=== PATIENT | female | born 1960 | race African-American/Black ===

== ENCOUNTER 2021-10-30 04:22 | Inpatient (IN) | payer BC ==
[~2021-10-30] VITALS: Ht 154.9 cm; Wt 38.1 kg
[2021-10-30] MEDS ORDERED: VANCOMYCIN 1 G PREMIX 200 ML IV ONE (04:30)
[2021-10-30] MEDS ORDERED: ETOMIDATE 2MG/ML 10ML VIAL IV ONE ×2 (04:30→10:00)
[2021-10-30] MEDS ORDERED: MIDAZOLAM HCL 50 MG in DEXTROSE 5% WATER 40 ML IV ONE (04:30)
[2021-10-30] MEDS ORDERED: VECURONIUM BROMIDE 10 MG/VIAL IV ONE ×2 (04:30→10:00)
[2021-10-30] MEDS ORDERED: SODIUM CHLORIDE 0.9% 1,000 ML IV ONE (04:30)
[2021-10-30] MEDS ORDERED: PIPERACILLIN/TAZ 3.375G PREMIX 50 ML IV ONE (04:30)
[2021-10-30] MEDS ORDERED: MIDAZOLAM 100MG/100ML PREMIX IV NR (05:00)
[2021-10-30 05:25] LABS: BG BASE EXCESS -20.8 mmol/L (-2.0-2.0); BG CARBOXYHEMOGLOBIN 0.3 % (0.5-1.5); BG DEOXYHEMOGLOBIN 1.3 % (0.0-5.0); BG FRACTION INSPIRED OXYGEN 50; BG HCO3 ACT 8.1 mmol/L (22.0-26.0); BG METHEMOGLOBIN 0.4 % (0.0-1.5); BG OXYGEN SATURATION 98.7 % (92.0-98.5); BG PCO2 30.7 mmHg (35.0-45.0); BG PH 7.039 (7.350-7.450); BG PO2 255.7 mmHg (75.0-100.0); BG SAMPLE SITE RIGHT RADIAL; BG VENT MODE VENT - AC
[2021-10-30] MEDS ORDERED: CALCIUM CHLORIDE 1GM/10ML SYR IV ONE ×3 (05:45→10:00)
[2021-10-30] MEDS ORDERED: SODIUM BICARBONATE 8.4% 1 MEQ/ML 50ML SYR IV ONE ×3 (05:45→10:00)
[2021-10-30 05:46] LABS: MEAN CORPUSCULAR HEMOGLOBIN 27.3 pg (28.0-32.0); MEAN CORPUSCULAR VOLUME 80.5 fL (81.0-99.0); MEAN PLATELET VOLUME 8.2 fl (7.4-10.4); PLATELET 389 x1000/uL (130-400); RED BLOOD CELL COUNT 2.48 mill/uL (4.2-5.4); RED CELL DISTRIBUTION WIDTH 18.7 % (11.6-14.6)
[2021-10-30 05:56] LABS: CHLORIDE 98 mEq/L (98-107); HEMOGLOBIN. 6.8 g/dL (12.0-16.0)
[2021-10-30 06:29] LABS: ETHANOL BLOOD < 10 mg/dL
[2021-10-30 07:12] LABS: PLATELET ESTIMATE NORMAL
[2021-10-30] MEDS ORDERED: INSULIN REGULAR (HUMULIN R) 300UNITS/3ML VIAL IV ONE (07:15)
[2021-10-30] MEDS ORDERED: DEXTROSE 50% WATER 50ML SYRINGE IV ONE (07:15)
[2021-10-30] MEDS ORDERED: ALBUTEROL (0.083%) 2.5MG/3ML NEB HHN ONE (07:15)
[2021-10-30] MEDS ORDERED: LACTATED RINGERS IV NR (07:30)
[2021-10-30] MEDS ORDERED: MANNITOL 12.5G (25%) VIAL 50ML IV NR ×2 (08:00→18:15)
[2021-10-30] MEDS ORDERED: LIDOCAINE HCL 1% 20ML VIAL (Pyxis) INJ ONE (08:51)
[2021-10-30] MEDS ORDERED: ADENOSINE 3 MG/ML 2ML VIAL IV ONE (10:00)
[2021-10-30] MEDS ORDERED: SODIUM CHLORIDE 0.9% 10ML VIAL ONE (10:00)
[2021-10-30 10:03] LABS: HEPATITIS B SURFACE ANTIGEN NEGATIVE
[2021-10-30 10:16] LABS: PHOSPHORUS 9.8 mg/dL (2.5-4.9)
[2021-10-30] MEDS ORDERED: SODIUM BICARBONATE 8.4% 1 MEQ/ML 50ML SYR IV NR (10:45)
[2021-10-30] MEDS ORDERED: INSULIN REGULAR (HUMULIN R) 300UNITS/3ML VIAL IV NR (10:45)
[2021-10-30] MEDS ORDERED: ACETAMINOPHEN 325MG TABLET PO PRN (13:15)
[2021-10-30] MEDS ORDERED: ONDANSETRON HCL 4MG/2ML INJ IV PRN (13:15)
[2021-10-30 14:47] LABS: HEMATOCRIT 26.3 % (36.0-48.0)
[2021-10-30 14:59] LABS: INR 1.4; PROTHROMBIN TIME 14.6 sec (9.6-11.0)
[2021-10-30 19:02] LABS: AMYLASE 385 IU/L (25-115)
[2021-10-30] MEDS ORDERED: PHENYLEPHRINE 100 MG in DEXT 5% WATER 240 ML IV PRN (19:45)
[2021-10-30] MEDS ORDERED: PIPERACILLIN/TAZ 3.375G PREMIX 50 ML IV SCH (21:00)
[2021-10-30 22:24] LABS: BG CARBOXYHEMOGLOBIN 0.2 % (0.5-1.5); BG DEOXYHEMOGLOBIN 3.6 % (0.0-5.0); BG FRACTION INSPIRED OXYGEN 40; BG HCO3 ACT 20.7 mmol/L (22.0-26.0); BG METHEMOGLOBIN 0.2 % (0.0-1.5); BG OXYGEN SATURATION 96.4 % (92.0-98.5); BG PCO2 31.8 mmHg (35.0-45.0); BG PH 7.431 (7.350-7.450); BG PO2 103.7 mmHg (75.0-100.0); BG SAMPLE SITE RIGHT BRACHIAL; BG TOTAL HEMOGLOBIN 9.8 g/dL (12.0-18.0); BG VENT MODE VENT - AC
[2021-10-30 23:35] LABS: CLARITY URINE TURBID (CLEAR); COLOR URINE RED (YELLOW); KETONES URINE NEGATIVE (NEGATIVE); LEUKOCYTE ESTERASE URINE 3+ (NEGATIVE); NITRITE URINE POSITIVE (NEGATIVE); OCCULT BLOOD URINE 2+ (NEGATIVE); PROTEIN URINE 3+ (NEGATIVE); SPECIFIC GRAVITY URINE 1.025 (1.005-1.030); UROBILINOGEN URINE 0.2 E.U./dL (0.2-1.0)
[2021-10-31] VITALS (64 sets, daily range): BP systolic 94–157; BP diastolic 46–149
[2021-10-31 01:04] LABS: *AMPHETAMINES SCREEN URINE NEGATIVE (NEGATIVE); *BARBITURATES SCREEN URINE NEGATIVE (NEGATIVE); *BENZODIAZEPINES SCREEN URINE NEGATIVE (NEGATIVE); *COCAINE SCREEN URINE NEGATIVE (NEGATIVE)
[2021-10-31 01:06] LABS: METHADONE URINE SCREEN NEGATIVE (NEGATIVE)
[2021-10-31 01:08] LABS: CANNABINOID URINE SCREEN NEGATIVE (NEGATIVE); OPIATES URINE SCREEN NEGATIVE (NEGATIVE); PHENCYCLIDINE URINE SCREEN NEGATIVE (NEGATIVE)
[2021-10-31] MEDS ORDERED: MIDAZOLAM 100MG/100ML PMX 100 ML IV STA (03:36)
[2021-10-31] MEDS ORDERED: MIDAZOLAM HCL 100 MG in SODIUM CHLORIDE 0.9% 100 ML IV PRN (04:00)
[2021-10-31 05:34] LABS: HEMOGLOBIN. 8.4 g/dL (12.0-16.0); MEAN CORPUSCULAR HEMOGLOBIN 27.3 pg (28.0-32.0); MEAN CORPUSCULAR VOLUME 81.1 fL (81.0-99.0); MEAN PLATELET VOLUME 8.4 fl (7.4-10.4); PLATELET 278 x1000/uL (130-400); RED BLOOD CELL COUNT 3.08 mill/uL (4.2-5.4); RED CELL DISTRIBUTION WIDTH 18.4 % (11.6-14.6)
[2021-10-31 08:40] LABS: BG BASE EXCESS -5.8 mmol/L (-2.0-2.0); BG CARBOXYHEMOGLOBIN 0.2 % (0.5-1.5); BG DEOXYHEMOGLOBIN 2.9 % (0.0-5.0); BG FRACTION INSPIRED OXYGEN 40; BG HCO3 ACT 18.6 mmol/L (22.0-26.0); BG METHEMOGLOBIN 0.4 % (0.0-1.5); BG OXYGEN SATURATION 97.1 % (92.0-98.5); BG OXYHEMOGLOBIN 96.5 % (94.0-97.0); BG PCO2 32.2 mmHg (35.0-45.0); BG PO2 116.4 mmHg (75.0-100.0); BG SAMPLE SITE LEFT RADIAL; BG TOTAL HEMOGLOBIN 8.8 g/dL (12.0-18.0); BG VENT MODE VENT - AC
[2021-10-31] MEDS: DEXT 5%/0.45% NACL 1000ML 1,000 ML IV SCH ×2 (09:11→18:49)
[2021-10-31] MEDS: PANTOPRAZOLE SODIUM 40 MG/VIAL IV SCH (09:11)
[2021-10-31 10:19] LABS: NUCLEATED RED BLOOD CELLS 1 /100 WBC; PLATELET ESTIMATE NORMAL
[2021-10-31] MEDS: PIPERACILLIN/TAZOBACTAM 3.375 G in DEXTROSE 5% WATER 50 ML IV SCH ×2 (10:52→20:40)
[2021-10-31] MEDS ORDERED: PROPOFOL 10MG/ML 100ML 100 ML IV PRN (15:45)
[2021-10-31] MEDS ORDERED: IPRATROPIUM/ALBUTEROL 0.5-3(2.5)MG/3ML NEB HHN PRN (16:00)
[2021-10-31] MEDS ORDERED: FENTANYL CITRATE/PF 2,500 MCG in SODIUM CHLORIDE 0.9% 200 ML IV PRN (16:30)
[2021-10-31] MEDS: IPRATROPIUM/ALBUTEROL 0.5-3(2.5)MG/3ML NEB HHN SCH (20:40)
[2021-11-01] VITALS (87 sets, daily range): BP systolic 95–138; BP diastolic 54–97
[2021-11-01] MEDS: IPRATROPIUM/ALBUTEROL 0.5-3(2.5)MG/3ML NEB HHN SCH ×4 (01:19→20:47)
[2021-11-01] MEDS: DEXT 5%/0.45% NACL 1000ML 1,000 ML IV SCH ×2 (05:01→15:32)
[2021-11-01 06:18] LABS: HEMATOCRIT. 25.6 % (36.0-48.0); HEMOGLOBIN. 8.7 g/dL (12.0-16.0); MEAN CORPUSCULAR HEMOGLOBIN 27.7 pg (28.0-32.0); MEAN CORPUSCULAR VOLUME 81.4 fL (81.0-99.0); MEAN PLATELET VOLUME 8.1 fl (7.4-10.4); PLATELET 225 x1000/uL (130-400); RED BLOOD CELL COUNT 3.15 mill/uL (4.2-5.4); RED CELL DISTRIBUTION WIDTH 18.2 % (11.6-14.6)
[2021-11-01 08:51] LABS: BG BASE EXCESS -5.8 mmol/L (-2.0-2.0); BG CARBOXYHEMOGLOBIN 0.3 % (0.5-1.5); BG FRACTION INSPIRED OXYGEN 40; BG HCO3 ACT 17.4 mmol/L (22.0-26.0); BG OXYHEMOGLOBIN 98.7 % (94.0-97.0); BG PCO2 26.2 mmHg (35.0-45.0); BG PEEP (cmH2O) 0 cmH2O; BG PO2 180.4 mmHg (75.0-100.0); BG SAMPLE SITE RIGHT RADIAL; BG TOTAL HEMOGLOBIN 8.4 g/dL (12.0-18.0); BG VENT MODE VENT - AC/VC
[2021-11-01 08:52] LABS: NUCLEATED RED BLOOD CELLS 2 /100 WBC; PLATELET ESTIMATE NORMAL
[2021-11-01] MEDS: PIPERACILLIN/TAZOBACTAM 3.375 G in DEXTROSE 5% WATER 50 ML IV SCH ×2 (08:54→20:53)
[2021-11-01] MEDS: PANTOPRAZOLE SODIUM 40 MG/VIAL IV SCH (08:54)
[2021-11-01] MEDS: MIDODRINE HCL 5MG TABLET PO SCH ×3 (12:48→21:33)
[2021-11-01] MEDS ORDERED: VANCOMYCIN 500 MG PREMIX 100 ML IV SCH (15:00)
[2021-11-02] VITALS (80 sets, daily range): BP systolic 100–172; BP diastolic 66–116
[2021-11-02] MEDS: IPRATROPIUM/ALBUTEROL 0.5-3(2.5)MG/3ML NEB HHN SCH ×4 (00:39→20:19)
[2021-11-02] MEDS: DEXT 5%/0.45% NACL 1000ML 1,000 ML IV SCH (02:16)
[2021-11-02] MEDS ORDERED: KETOROLAC 30MG/ML VIAL IV SCH (02:30)
[2021-11-02] MEDS: MIDODRINE HCL 5MG TABLET PO SCH ×4 (05:14→21:15)
[2021-11-02] MEDS: PANTOPRAZOLE SODIUM 40 MG/VIAL IV SCH (08:16)
[2021-11-02] MEDS: PIPERACILLIN/TAZOBACTAM 3.375 G in DEXTROSE 5% WATER 50 ML IV SCH ×2 (08:16→20:58)
[2021-11-02 08:46] LABS: MEAN CORPUSCULAR HEMOGLOBIN 28.8 pg (28.0-32.0); MEAN CORPUSCULAR VOLUME 81.1 fL (81.0-99.0); MEAN PLATELET VOLUME 8.4 fl (7.4-10.4); PLATELET 124 x1000/uL (130-400); RED BLOOD CELL COUNT 2.57 mill/uL (4.2-5.4); RED CELL DISTRIBUTION WIDTH 17.7 % (11.6-14.6)
[2021-11-02 08:52] LABS: HEMATOCRIT. 20.8 % (36.0-48.0); HEMOGLOBIN. 7.4 g/dL (12.0-16.0)
[2021-11-02 08:53] LABS: BG BASE EXCESS -2.2 mmol/L (-2.0-2.0); BG CARBOXYHEMOGLOBIN 0.2 % (0.5-1.5); BG DEOXYHEMOGLOBIN 2.9 % (0.0-5.0); BG FRACTION INSPIRED OXYGEN 30; BG HCO3 ACT 21.3 mmol/L (22.0-26.0); BG METHEMOGLOBIN 0.5 % (0.0-1.5); BG OXYGEN SATURATION 97.1 % (92.0-98.5); BG OXYHEMOGLOBIN 96.4 % (94.0-97.0); BG PH 7.454 (7.350-7.450); BG PO2 98.6 mmHg (75.0-100.0); BG SAMPLE SITE RIGHT RADIAL; BG TOTAL HEMOGLOBIN 8.2 g/dL (12.0-18.0); BG TOTAL RESPIRATORY RATE 19 b/min; BG VENT MODE VENT - AC
[2021-11-02 09:05] LABS: PHOSPHORUS 4.1 mg/dL (2.5-4.9)
[2021-11-02 14:31] LABS: PLATELET ESTIMATE SLIGHTLY DECREASED
[2021-11-02 15:11] LABS: HEMATOCRIT 28.3 % (36.0-48.0); HEMOGLOBIN 9.3 g/dL (12.0-16.0)
[2021-11-02 15:28] LABS: INR 1.2; PROTHROMBIN TIME 13.1 sec (9.6-11.0)
[2021-11-03] VITALS (76 sets, daily range): BP systolic 97–185; BP diastolic 61–126
[2021-11-03] MEDS: IPRATROPIUM/ALBUTEROL 0.5-3(2.5)MG/3ML NEB HHN SCH ×4 (02:12→20:33)
[2021-11-03] MEDS ORDERED: LORAZEPAM 2MG/ML CPJ IM PRN (03:00)
[2021-11-03] MEDS: LORAZEPAM 2MG/ML CPJ IV PRN ×2 (03:15→12:54)
[2021-11-03] MEDS: HYDRALAZINE HCL 10MG TABLET PO PRN (05:44)
[2021-11-03] MEDS: MIDODRINE HCL 5MG TABLET PO SCH ×3 (05:44→22:00)
[2021-11-03 06:18] LABS: HEMATOCRIT. 27.6 % (36.0-48.0); HEMOGLOBIN. 9.4 g/dL (12.0-16.0); MEAN CORPUSCULAR HEMOGLOBIN 27.4 pg (28.0-32.0); MEAN CORPUSCULAR VOLUME 80.6 fL (81.0-99.0); MEAN PLATELET VOLUME 8.6 fl (7.4-10.4); PLATELET 93 x1000/uL (130-400); RED BLOOD CELL COUNT 3.42 mill/uL (4.2-5.4); RED CELL DISTRIBUTION WIDTH 16.5 % (11.6-14.6)
[2021-11-03 08:51] LABS: BG BASE EXCESS -2.2 mmol/L (-2.0-2.0); BG CARBOXYHEMOGLOBIN 0.2 % (0.5-1.5); BG DEOXYHEMOGLOBIN 3.2 % (0.0-5.0); BG FRACTION INSPIRED OXYGEN 30; BG HCO3 ACT 19.4 mmol/L (22.0-26.0); BG METHEMOGLOBIN 0.3 % (0.0-1.5); BG OXYGEN SATURATION 96.8 % (92.0-98.5); BG OXYHEMOGLOBIN 96.3 % (94.0-97.0); BG PCO2 23.6 mmHg (35.0-45.0); BG PH 7.532 (7.350-7.450); BG PO2 90.4 mmHg (75.0-100.0); BG SAMPLE SITE RIGHT RADIAL; BG TOTAL HEMOGLOBIN 10.1 g/dL (12.0-18.0); BG VENT MODE VENT - SIMV
[2021-11-03] MEDS: PANTOPRAZOLE SODIUM 40 MG/VIAL IV SCH (09:28)
[2021-11-03] MEDS: PIPERACILLIN/TAZOBACTAM 3.375 G in DEXTROSE 5% WATER 50 ML IV SCH ×2 (09:29→21:38)
[2021-11-03 10:05] LABS: NUCLEATED RED BLOOD CELLS 1 /100 WBC; PLATELET ESTIMATE SLIGHTLY DECREASED
[2021-11-03] MEDS: MORPHINE SULFATE 2 MG/ML CPJ (NOT FOR IM USE) IV PRN (16:39)
[2021-11-03] MEDS: GUAIFENESIN 200MG/10ML SUGAR FREE UDC PO SCH (18:54)
[2021-11-04] VITALS (93 sets, daily range): BP systolic 104–182; BP diastolic 33–122
[2021-11-04] MEDS: IPRATROPIUM/ALBUTEROL 0.5-3(2.5)MG/3ML NEB HHN SCH ×4 (00:33→20:20)
[2021-11-04] MEDS: ACETYLCYSTEINE 100MG/ML 10% VIAL 4ML INH SCH ×3 (00:34→14:40)
[2021-11-04] MEDS: GUAIFENESIN 200MG/10ML SUGAR FREE UDC PO SCH ×5 (01:20→22:49)
[2021-11-04] MEDS: LORAZEPAM 2MG/ML CPJ IV PRN ×3 (01:20→18:28)
[2021-11-04] MEDS: MORPHINE SULFATE 2 MG/ML CPJ (NOT FOR IM USE) IV PRN (03:20)
[2021-11-04] MEDS: HYDRALAZINE HCL 10MG TABLET PO PRN (04:18)
[2021-11-04] MEDS: MIDODRINE HCL 5MG TABLET PO SCH (06:00)
[2021-11-04 06:42] LABS: HEMATOCRIT. 28.1 % (36.0-48.0); HEMOGLOBIN. 9.5 g/dL (12.0-16.0); MEAN CORPUSCULAR HEMOGLOBIN 27.5 pg (28.0-32.0); MEAN CORPUSCULAR VOLUME 81.6 fL (81.0-99.0); MEAN PLATELET VOLUME 8.8 fl (7.4-10.4); PLATELET 69 x1000/uL (130-400); RED BLOOD CELL COUNT 3.44 mill/uL (4.2-5.4); RED CELL DISTRIBUTION WIDTH 16.7 % (11.6-14.6)
[2021-11-04] MEDS: PIPERACILLIN/TAZOBACTAM 3.375 G in DEXTROSE 5% WATER 50 ML IV SCH ×2 (08:11→21:29)
[2021-11-04] MEDS: PANTOPRAZOLE SODIUM 40 MG/VIAL IV SCH (08:11)
[2021-11-04] MEDS ORDERED: POTASSIUM CHLORIDE 20MEQ TABLET SR PO SCH (08:45)
[2021-11-04] MEDS: AMLODIPINE 10MG TABLET PO SCH (09:35)
[2021-11-04] MEDS ORDERED: NALOXONE HCL 0.4MG/ML VIAL IV PRN (15:30)
[2021-11-04] MEDS: POLYVINYL ALCOHOL OPHTH DROPS 15ML BOTHEYE SCH (17:06)
[2021-11-04 18:54] LABS: CREATININE URINE RANDOM < 10.0 mg/dL
[2021-11-05] VITALS (91 sets, daily range): BP systolic 122–174; BP diastolic 74–108
[2021-11-05 01:08] LABS: PLATELET ESTIMATE DECREASED
[2021-11-05] MEDS: ACETYLCYSTEINE 100MG/ML 10% VIAL 4ML INH SCH ×3 (02:30→14:57)
[2021-11-05] MEDS: IPRATROPIUM/ALBUTEROL 0.5-3(2.5)MG/3ML NEB HHN SCH ×4 (02:30→21:12)
[2021-11-05] MEDS: GUAIFENESIN 200MG/10ML SUGAR FREE UDC PO SCH ×4 (04:15→23:29)
[2021-11-05] MEDS: POLYVINYL ALCOHOL OPHTH DROPS 15ML BOTHEYE SCH ×5 (05:56→21:16)
[2021-11-05 06:30] LABS: PHOSPHORUS 3.1 mg/dL (2.5-4.9)
[2021-11-05 07:31] LABS: BG BASE EXCESS 0.5 mmol/L (-2.0-2.0); BG CARBOXYHEMOGLOBIN 0.3 % (0.5-1.5); BG DEOXYHEMOGLOBIN 4.4 % (0.0-5.0); BG HCO3 ACT 23.5 mmol/L (22.0-26.0); BG METHEMOGLOBIN 0.3 % (0.0-1.5); BG OXYGEN SATURATION 95.6 % (92.0-98.5); BG PCO2 31.3 mmHg (35.0-45.0); BG PH 7.493 (7.350-7.450); BG PO2 80.3 mmHg (75.0-100.0); BG SAMPLE SITE RIGHT RADIAL; BG TOTAL HEMOGLOBIN 9.2 g/dL (12.0-18.0); BG VENT MODE VENT - AC
[2021-11-05] MEDS: PANTOPRAZOLE SODIUM 40 MG/VIAL IV SCH (09:35)
[2021-11-05] MEDS: AMLODIPINE 10MG TABLET PO SCH (09:36)
[2021-11-05] MEDS: HYDRALAZINE HCL 10MG TABLET PO PRN (12:26)
[2021-11-05] MEDS: LORAZEPAM 2MG/ML CPJ IV PRN ×2 (12:52→18:14)
[2021-11-05] MEDS ORDERED: METOPROLOL TARTRATE 50MG TABLET PO NR (13:30)
[2021-11-05] MEDS: MORPHINE SULFATE 2 MG/ML CPJ (NOT FOR IM USE) IV PRN (15:41)
[2021-11-05] MEDS: METOPROLOL TARTRATE 50MG TABLET PO SCH (21:17)
[2021-11-06] VITALS (87 sets, daily range): BP systolic 89–179; BP diastolic 64–103
[2021-11-06] MEDS: IPRATROPIUM/ALBUTEROL 0.5-3(2.5)MG/3ML NEB HHN SCH ×4 (01:32→21:17)
[2021-11-06] MEDS: ACETYLCYSTEINE 100MG/ML 10% VIAL 4ML INH SCH ×3 (01:32→13:09)
[2021-11-06] MEDS: LORAZEPAM 2MG/ML CPJ IV PRN (02:24)
[2021-11-06] MEDS: GUAIFENESIN 200MG/10ML SUGAR FREE UDC PO SCH ×3 (04:20→23:35)
[2021-11-06] MEDS: POLYVINYL ALCOHOL OPHTH DROPS 15ML BOTHEYE SCH ×4 (06:40→23:35)
[2021-11-06 06:42] LABS: HEMATOCRIT. 25.9 % (36.0-48.0); HEMOGLOBIN. 8.6 g/dL (12.0-16.0); MEAN CORPUSCULAR HEMOGLOBIN 27.3 pg (28.0-32.0); MEAN CORPUSCULAR VOLUME 82.6 fL (81.0-99.0); PLATELET 87 x1000/uL (130-400); RED BLOOD CELL COUNT 3.14 mill/uL (4.2-5.4); RED CELL DISTRIBUTION WIDTH 16.6 % (11.6-14.6)
[2021-11-06 06:57] LABS: PHOSPHORUS 3.3 mg/dL (2.5-4.9)
[2021-11-06] MEDS: MORPHINE SULFATE 2 MG/ML CPJ (NOT FOR IM USE) IV PRN (07:40)
[2021-11-06] MEDS: PANTOPRAZOLE SODIUM 40 MG/VIAL IV SCH (08:26)
[2021-11-06] MEDS: METOPROLOL TARTRATE 50MG TABLET PO SCH ×2 (08:29→20:44)
[2021-11-06] MEDS: AMLODIPINE 10MG TABLET PO SCH (08:30)
[2021-11-06 09:35] LABS: BG BASE EXCESS -1.5 mmol/L (-2.0-2.0); BG CARBOXYHEMOGLOBIN 0.3 % (0.5-1.5); BG DEOXYHEMOGLOBIN 3.8 % (0.0-5.0); BG FRACTION INSPIRED OXYGEN 40; BG HCO3 ACT 21.7 mmol/L (22.0-26.0); BG METHEMOGLOBIN 0.2 % (0.0-1.5); BG OXYGEN SATURATION 96.2 % (92.0-98.5); BG OXYHEMOGLOBIN 95.7 % (94.0-97.0); BG PCO2 31.1 mmHg (35.0-45.0); BG PH 7.462 (7.350-7.450); BG PO2 80.8 mmHg (75.0-100.0); BG SAMPLE SITE RIGHT RADIAL; BG TOTAL HEMOGLOBIN 9.9 g/dL (12.0-18.0); BG TOTAL RESPIRATORY RATE 28 b/min; BG VENT MODE VENT - AC
[2021-11-06 11:43] LABS: PLATELET ESTIMATE DECREASED
[2021-11-06 13:33] LABS: BG BASE EXCESS -1.3 mmol/L (-2.0-2.0); BG CARBOXYHEMOGLOBIN 0.3 % (0.5-1.5); BG DEOXYHEMOGLOBIN 3.9 % (0.0-5.0); BG METHEMOGLOBIN 0.3 % (0.0-1.5); BG OXYGEN SATURATION 96.1 % (92.0-98.5); BG OXYHEMOGLOBIN 95.5 % (94.0-97.0); BG PCO2 31.7 mmHg (35.0-45.0); BG PO2 82.3 mmHg (75.0-100.0); BG SAMPLE SITE RIGHT RADIAL; BG TOTAL HEMOGLOBIN 9.3 g/dL (12.0-18.0); BG VENT MODE VENT - CPAP
[2021-11-06] MEDS ORDERED: HEPARIN SODIUM 1,000 UNIT/1ML VIAL IV NR (14:15)
[2021-11-06 17:16] LABS: BG BASE EXCESS 1.1 mmol/L (-2.0-2.0); BG CARBOXYHEMOGLOBIN 0.3 % (0.5-1.5); BG DEOXYHEMOGLOBIN 4.5 % (0.0-5.0); BG HCO3 ACT 23.5 mmol/L (22.0-26.0); BG METHEMOGLOBIN 0.1 % (0.0-1.5); BG OXYGEN SATURATION 95.5 % (92.0-98.5); BG OXYHEMOGLOBIN 95.1 % (94.0-97.0); BG PCO2 30.5 mmHg (35.0-45.0); BG PH 7.505 (7.350-7.450); BG PO2 77.1 mmHg (75.0-100.0); BG SAMPLE SITE RIGHT RADIAL; BG TOTAL HEMOGLOBIN 11.7 g/dL (12.0-18.0); BG VENT MODE VENT - CPAP
[2021-11-07] VITALS (73 sets, daily range): BP systolic 106–169; BP diastolic 61–118
[2021-11-07] MEDS: ACETYLCYSTEINE 100MG/ML 10% VIAL 4ML INH SCH ×3 (00:45→16:44)
[2021-11-07] MEDS: IPRATROPIUM/ALBUTEROL 0.5-3(2.5)MG/3ML NEB HHN SCH ×4 (00:46→21:43)
[2021-11-07 06:39] LABS: HEMOGLOBIN. 8.7 g/dL (12.0-16.0); MEAN CORPUSCULAR HEMOGLOBIN 27.4 pg (28.0-32.0); MEAN CORPUSCULAR VOLUME 82.3 fL (81.0-99.0); MEAN PLATELET VOLUME 9.9 fl (7.4-10.4); PLATELET 154 x1000/uL (130-400); RED BLOOD CELL COUNT 3.16 mill/uL (4.2-5.4); RED CELL DISTRIBUTION WIDTH 16.9 % (11.6-14.6)
[2021-11-07] MEDS: POLYVINYL ALCOHOL OPHTH DROPS 15ML BOTHEYE SCH ×3 (07:00→18:23)
[2021-11-07] MEDS: GUAIFENESIN 200MG/10ML SUGAR FREE UDC PO SCH ×3 (07:01→22:26)
[2021-11-07] MEDS: METOPROLOL TARTRATE 50MG TABLET PO SCH ×2 (08:19→20:32)
[2021-11-07] MEDS: PANTOPRAZOLE SODIUM 40 MG/VIAL IV SCH (08:19)
[2021-11-07] MEDS: HYDRALAZINE HCL 10MG TABLET PO PRN (08:19)
[2021-11-07] MEDS: AMLODIPINE 10MG TABLET PO SCH (08:22)
[2021-11-07 09:33] LABS: BG BASE EXCESS 0.2 mmol/L (-2.0-2.0); BG CARBOXYHEMOGLOBIN 0.3 % (0.5-1.5); BG FRACTION INSPIRED OXYGEN 40; BG HCO3 ACT 23.5 mmol/L (22.0-26.0); BG METHEMOGLOBIN 0.3 % (0.0-1.5); BG OXYHEMOGLOBIN 96.4 % (94.0-97.0); BG PCO2 32.6 mmHg (35.0-45.0); BG PH 7.476 (7.350-7.450); BG PO2 86.4 mmHg (75.0-100.0); BG SAMPLE SITE RIGHT RADIAL; BG TOTAL HEMOGLOBIN 8.3 g/dL (12.0-18.0); BG VENT MODE VENT - AC
[2021-11-07 12:05] LABS: BG BASE EXCESS -0.8 mmol/L (-2.0-2.0); BG CARBOXYHEMOGLOBIN 0.3 % (0.5-1.5); BG DEOXYHEMOGLOBIN 8.6 % (0.0-5.0); BG FRACTION INSPIRED OXYGEN 40; BG HCO3 ACT 22.1 mmol/L (22.0-26.0); BG METHEMOGLOBIN 0.2 % (0.0-1.5); BG OXYGEN SATURATION 91.4 % (92.0-98.5); BG OXYHEMOGLOBIN 90.9 % (94.0-97.0); BG PCO2 29.7 mmHg (35.0-45.0); BG PH 7.489 (7.350-7.450); BG PO2 57.8 mmHg (75.0-100.0); BG SAMPLE SITE RIGHT RADIAL; BG TOTAL HEMOGLOBIN 8.7 g/dL (12.0-18.0); BG VENT MODE VENT - CPAP
[2021-11-07 13:36] LABS: PLATELET ESTIMATE NORMAL
[2021-11-08] VITALS (55 sets, daily range): BP systolic 108–166; BP diastolic 65–101
[2021-11-08] MEDS: POLYVINYL ALCOHOL OPHTH DROPS 15ML BOTHEYE SCH ×4 (00:05→17:01)
[2021-11-08] MEDS: IPRATROPIUM/ALBUTEROL 0.5-3(2.5)MG/3ML NEB HHN SCH ×4 (02:01→20:30)
[2021-11-08] MEDS: ACETYLCYSTEINE 100MG/ML 10% VIAL 4ML INH SCH ×3 (02:01→14:09)
[2021-11-08] MEDS: GUAIFENESIN 200MG/10ML SUGAR FREE UDC PO SCH ×4 (04:25→21:21)
[2021-11-08 05:58] LABS: HEMATOCRIT. 22.6 % (36.0-48.0); HEMOGLOBIN. 7.6 g/dL (12.0-16.0); MEAN CORPUSCULAR HEMOGLOBIN 27.4 pg (28.0-32.0); MEAN CORPUSCULAR VOLUME 81.5 fL (81.0-99.0); MEAN PLATELET VOLUME 9.6 fl (7.4-10.4); PLATELET 253 x1000/uL (130-400); RED BLOOD CELL COUNT 2.77 mill/uL (4.2-5.4); RED CELL DISTRIBUTION WIDTH 16.3 % (11.6-14.6)
[2021-11-08] MEDS: PANTOPRAZOLE SODIUM 40 MG/VIAL IV SCH (09:09)
[2021-11-08] MEDS: METOPROLOL TARTRATE 50MG TABLET PO SCH ×2 (09:10→21:22)
[2021-11-08] MEDS: HYDRALAZINE HCL 10MG TABLET PO PRN (09:10)
[2021-11-08] MEDS: AMLODIPINE 10MG TABLET PO SCH (09:10)
[2021-11-08] MEDS ORDERED: ENOXAPARIN 30MG/0.3ML SYR SUBCUT SCH (13:00)
[2021-11-08 13:07] LABS: ANTI-NUCLEAR ANTIBODIES DIRECT Positive (Negative)
[2021-11-08 14:09] LABS: A/G RATIO 0.6 (0.7-1.7); ALBUMIN 2.2 g/dL (2.9-4.4); ALPHA-1-GLOBULIN 0.6 g/dL (0.0-0.4); ALPHA-2-GLOBULIN 1.2 g/dL (0.4-1.0); BETA GLOBULIN 0.8 g/dL (0.7-1.3); GAMMA GLOBULINS 1.2 g/dL (0.4-1.8); GLOBULIN TOTAL 3.7 g/dL (2.2-3.9); M-SPIKE 0.8 g/dL (Not Observed); TOTAL PROTEIN SERUM 5.9 g/dL (6.0-8.5)
[2021-11-09] VITALS (12 sets, daily range): BP systolic 107–132; BP diastolic 66–84
[2021-11-09] MEDS: POLYVINYL ALCOHOL OPHTH DROPS 15ML BOTHEYE SCH ×4 (00:06→17:43)
[2021-11-09] MEDS: IPRATROPIUM/ALBUTEROL 0.5-3(2.5)MG/3ML NEB HHN SCH ×4 (01:07→18:00)
[2021-11-09] MEDS: ACETYLCYSTEINE 100MG/ML 10% VIAL 4ML INH SCH ×2 (01:30→08:06)
[2021-11-09] MEDS: GUAIFENESIN 200MG/10ML SUGAR FREE UDC PO SCH ×4 (05:04→22:13)
[2021-11-09 06:20] LABS: PLATELET ESTIMATE NORMAL
[2021-11-09 08:01] LABS: HEMATOCRIT. 21.5 % (36.0-48.0); HEMOGLOBIN. 7.2 g/dL (12.0-16.0); MEAN CORPUSCULAR HEMOGLOBIN 27.5 pg (28.0-32.0); MEAN CORPUSCULAR VOLUME 82.3 fL (81.0-99.0); MEAN PLATELET VOLUME 9.1 fl (7.4-10.4); PLATELET 368 x1000/uL (130-400); RED BLOOD CELL COUNT 2.61 mill/uL (4.2-5.4); RED CELL DISTRIBUTION WIDTH 16.5 % (11.6-14.6)
[2021-11-09] MEDS ORDERED: ASPIRIN 81MG TABLET PO SCH (09:00)
[2021-11-09] MEDS: PANTOPRAZOLE SODIUM 40 MG/VIAL IV SCH (09:22)
[2021-11-09] MEDS: AMLODIPINE 10MG TABLET PO SCH (09:22)
[2021-11-09] MEDS: METOPROLOL TARTRATE 50MG TABLET PO SCH ×2 (09:23→22:14)
[2021-11-09 13:49] LABS: HEPATITIS B SURFACE ANTIGEN NEGATIVE
[2021-11-09 16:44] LABS: PLATELET ESTIMATE NORMAL
[2021-11-09] MEDS ORDERED: NALOXONE HCL 0.4 MG/ML 1ML VIAL IV PRN (18:45)
[2021-11-09] MEDS: ATORVASTATIN CALCIUM 40MG TABLET PO SCH (22:13)
[2021-11-10] VITALS (12 sets, daily range): BP systolic 106–138; BP diastolic 41–81
[2021-11-10] MEDS: IPRATROPIUM/ALBUTEROL 0.5-3(2.5)MG/3ML NEB HHN SCH ×4 (01:30→21:22)
[2021-11-10] MEDS: POLYVINYL ALCOHOL OPHTH DROPS 15ML BOTHEYE SCH ×3 (04:58→18:03)
[2021-11-10] MEDS: GUAIFENESIN 200MG/10ML SUGAR FREE UDC PO SCH ×4 (04:58→22:15)
[2021-11-10 07:28] LABS: HEMATOCRIT. 21.7 % (36.0-48.0); HEMOGLOBIN. 7.4 g/dL (12.0-16.0); MEAN CORPUSCULAR HEMOGLOBIN 28.2 pg (28.0-32.0); MEAN CORPUSCULAR VOLUME 82.7 fL (81.0-99.0); MEAN PLATELET VOLUME 8.5 fl (7.4-10.4); PLATELET 489 x1000/uL (130-400); RED BLOOD CELL COUNT 2.62 mill/uL (4.2-5.4); RED CELL DISTRIBUTION WIDTH 16.6 % (11.6-14.6)
[2021-11-10] MEDS: PANTOPRAZOLE SODIUM 40 MG/VIAL IV SCH (08:48)
[2021-11-10] MEDS: AMLODIPINE 10MG TABLET PO SCH (08:49)
[2021-11-10] MEDS: METOPROLOL TARTRATE 50MG TABLET PO SCH ×2 (08:49→20:44)
[2021-11-10] MEDS: ACETYLCYSTEINE 100MG/ML 10% VIAL 4ML INH SCH ×2 (09:28→14:39)
[2021-11-10 12:36] LABS: INR 1.1; PROTHROMBIN TIME 11.8 sec (9.6-11.0)
[2021-11-10] MEDS: ATORVASTATIN CALCIUM 40MG TABLET PO SCH (20:44)
[2021-11-11] VITALS (24 sets, daily range): BP systolic 97–148; BP diastolic 38–87
[2021-11-11] MEDS: POLYVINYL ALCOHOL OPHTH DROPS 15ML BOTHEYE SCH ×4 (00:43→17:04)
[2021-11-11] MEDS: IPRATROPIUM/ALBUTEROL 0.5-3(2.5)MG/3ML NEB HHN SCH ×3 (01:21→11:53)
[2021-11-11] MEDS: ACETYLCYSTEINE 100MG/ML 10% VIAL 4ML INH SCH ×3 (01:21→11:54)
[2021-11-11] MEDS: GUAIFENESIN 200MG/10ML SUGAR FREE UDC PO SCH ×4 (04:10→22:15)
[2021-11-11 06:54] LABS: HEMATOCRIT. 21.4 % (36.0-48.0); HEMOGLOBIN. 7.3 g/dL (12.0-16.0); MEAN CORPUSCULAR HEMOGLOBIN 28.3 pg (28.0-32.0); MEAN CORPUSCULAR VOLUME 82.6 fL (81.0-99.0); MEAN PLATELET VOLUME 8.3 fl (7.4-10.4); PLATELET 445 x1000/uL (130-400); RED CELL DISTRIBUTION WIDTH 16.1 % (11.6-14.6)
[2021-11-11] MEDS: AMLODIPINE 10MG TABLET PO SCH (08:26)
[2021-11-11] MEDS: METOPROLOL TARTRATE 50MG TABLET PO SCH ×2 (08:27→21:12)
[2021-11-11] MEDS: PANTOPRAZOLE SODIUM 40 MG/VIAL IV SCH (08:27)
[2021-11-11 09:09] LABS: PLATELET ESTIMATE INCREASED
[2021-11-11 11:28] LABS: PLATELET ESTIMATE INCREASED
[2021-11-11] MEDS ORDERED: HEPARIN 1000 UNITS/ML 10ML ONE (12:27)
[2021-11-11] MEDS ORDERED: LIDOCAINE HCL 1% 20ML VIAL (Pyxis) INJ ONE (12:27)
[2021-11-11] MEDS ORDERED: CEFAZOLIN 1000MG PREMIX 50 ML IV ONE (12:32)
[2021-11-11] MEDS ORDERED: FENTANYL CITRATE/PF 50MCG/ML 2ML VIAL ONE (12:35)
[2021-11-11] MEDS ORDERED: CEFAZOLIN 1000MG PREMIX 50 ML IV SCH (13:00)
[2021-11-11] MEDS ORDERED: FENTANYL CITRATE/PF 50MCG/ML 2ML VIAL IV ONE (13:45)
[2021-11-11] MEDS: ATORVASTATIN CALCIUM 40MG TABLET PO SCH (21:11)
[2021-11-11] MEDS: EPOETIN ALFA-EPBX 10,000 UNIT/ML VIAL SUBCUT SCH (21:12)
[2021-11-12] VITALS (13 sets, daily range): BP systolic 104–149; BP diastolic 65–86
[2021-11-12] MEDS: POLYVINYL ALCOHOL OPHTH DROPS 15ML BOTHEYE SCH ×5 (01:21→23:48)
[2021-11-12] MEDS: GUAIFENESIN 200MG/10ML SUGAR FREE UDC PO SCH ×4 (04:25→21:51)
[2021-11-12 06:54] LABS: HEMATOCRIT. 23.9 % (36.0-48.0); HEMOGLOBIN. 8.1 g/dL (12.0-16.0); MEAN CORPUSCULAR HEMOGLOBIN 27.9 pg (28.0-32.0); MEAN CORPUSCULAR VOLUME 82.6 fL (81.0-99.0); MEAN PLATELET VOLUME 8.1 fl (7.4-10.4); PLATELET 507 x1000/uL (130-400); RED CELL DISTRIBUTION WIDTH 16.9 % (11.6-14.6)
[2021-11-12] MEDS: AMLODIPINE 10MG TABLET PO SCH (08:54)
[2021-11-12] MEDS: METOPROLOL TARTRATE 50MG TABLET PO SCH ×2 (08:54→21:37)
[2021-11-12] MEDS: PANTOPRAZOLE SODIUM 40 MG/VIAL IV SCH (08:54)
[2021-11-12] MEDS: IPRATROPIUM/ALBUTEROL 0.5-3(2.5)MG/3ML NEB HHN SCH ×4 (09:15→21:40)
[2021-11-12] MEDS: ACETYLCYSTEINE 100MG/ML 10% VIAL 4ML INH SCH ×2 (09:15→16:28)
[2021-11-12 14:25] LABS: BG BASE EXCESS -4.2 mmol/L (-2.0-2.0); BG CARBOXYHEMOGLOBIN 0.2 % (0.5-1.5); BG DEOXYHEMOGLOBIN 23.4 % (0.0-5.0); BG FRACTION INSPIRED OXYGEN 21; BG HCO3 ACT 17.7 mmol/L (22.0-26.0); BG METHEMOGLOBIN 0.2 % (0.0-1.5); BG OXYGEN SATURATION 76.5 % (92.0-98.5); BG OXYHEMOGLOBIN 76.2 % (94.0-97.0); BG PCO2 22.9 mmHg (35.0-45.0); BG PH 7.505 (7.350-7.450); BG PO2 41.1 mmHg (75.0-100.0); BG SAMPLE SITE LEFT BRACHIAL; BG TOTAL HEMOGLOBIN 9.7 g/dL (12.0-18.0); BG VENT MODE ROOM AIR
[2021-11-12 17:44] LABS: PLATELET ESTIMATE INCREASED
[2021-11-12] MEDS: ATORVASTATIN CALCIUM 40MG TABLET PO SCH (21:37)
[2021-11-13] VITALS (12 sets, daily range): BP systolic 100–124; BP diastolic 69–98
[2021-11-13] MEDS: GUAIFENESIN 200MG/10ML SUGAR FREE UDC PO SCH ×4 (04:15→22:15)
[2021-11-13] MEDS: POLYVINYL ALCOHOL OPHTH DROPS 15ML BOTHEYE SCH ×3 (05:35→17:49)
[2021-11-13] MEDS: PANTOPRAZOLE SODIUM 40 MG/VIAL IV SCH (08:01)
[2021-11-13] MEDS: METOPROLOL TARTRATE 50MG TABLET PO SCH ×2 (08:02→21:05)
[2021-11-13] MEDS: AMLODIPINE 10MG TABLET PO SCH (08:02)
[2021-11-13] MEDS: IPRATROPIUM/ALBUTEROL 0.5-3(2.5)MG/3ML NEB HHN SCH ×4 (09:18→20:21)
[2021-11-13] MEDS: ACETYLCYSTEINE 100MG/ML 10% VIAL 4ML INH SCH ×2 (09:18→17:11)
[2021-11-13 18:41] LABS: BG BASE EXCESS 1.2 mmol/L (-2.0-2.0); BG CARBOXYHEMOGLOBIN 0.3 % (0.5-1.5); BG DEOXYHEMOGLOBIN 15.2 % (0.0-5.0); BG FRACTION INSPIRED OXYGEN 21; BG HCO3 ACT 23.9 mmol/L (22.0-26.0); BG METHEMOGLOBIN 0.3 % (0.0-1.5); BG OXYGEN SATURATION 84.7 % (92.0-98.5); BG OXYHEMOGLOBIN 84.2 % (94.0-97.0); BG PCO2 30.3 mmHg (35.0-45.0); BG PH 7.514 (7.350-7.450); BG PO2 49.4 mmHg (75.0-100.0); BG SAMPLE SITE RIGHT RADIAL; BG TOTAL HEMOGLOBIN 8.5 g/dL (12.0-18.0); BG VENT MODE ROOM AIR
[2021-11-13] MEDS: ATORVASTATIN CALCIUM 40MG TABLET PO SCH (21:05)
[2021-11-14] VITALS (12 sets, daily range): BP systolic 120–140; BP diastolic 77–89
[2021-11-14] MEDS: POLYVINYL ALCOHOL OPHTH DROPS 15ML BOTHEYE SCH ×4 (00:01→17:03)
[2021-11-14] MEDS: IPRATROPIUM/ALBUTEROL 0.5-3(2.5)MG/3ML NEB HHN SCH ×3 (00:07→09:35)
[2021-11-14] MEDS: ACETYLCYSTEINE 100MG/ML 10% VIAL 4ML INH SCH ×3 (00:08→14:25)
[2021-11-14] MEDS: GUAIFENESIN 200MG/10ML SUGAR FREE UDC PO SCH ×4 (04:15→22:15)
[2021-11-14 07:19] LABS: HEMATOCRIT. 22.6 % (36.0-48.0); HEMOGLOBIN. 7.7 g/dL (12.0-16.0); MEAN CORPUSCULAR VOLUME 81.9 fL (81.0-99.0); MEAN PLATELET VOLUME 7.9 fl (7.4-10.4); PLATELET 350 x1000/uL (130-400); RED BLOOD CELL COUNT 2.76 mill/uL (4.2-5.4); RED CELL DISTRIBUTION WIDTH 16.8 % (11.6-14.6)
[2021-11-14] MEDS: AMLODIPINE 10MG TABLET PO SCH (10:41)
[2021-11-14] MEDS: METOPROLOL TARTRATE 50MG TABLET PO SCH ×2 (10:41→21:42)
[2021-11-14] MEDS: PANTOPRAZOLE SODIUM 40 MG/VIAL IV SCH (10:41)
[2021-11-14] MEDS: IPRATROPIUM BROMIDE (0.02%) 0.5MG/2.5ML NEB HHN SCH ×2 (14:25→22:15)
[2021-11-14 19:05] LABS: PLATELET ESTIMATE NORMAL
[2021-11-14] MEDS: ATORVASTATIN CALCIUM 40MG TABLET PO SCH (21:42)
[2021-11-14] MEDS: EPOETIN ALFA-EPBX 10,000 UNIT/ML VIAL SUBCUT SCH (21:45)
[2021-11-15] VITALS (13 sets, daily range): BP systolic 102–126; BP diastolic 58–82
[2021-11-15] MEDS: POLYVINYL ALCOHOL OPHTH DROPS 15ML BOTHEYE SCH ×4 (00:05→17:39)
[2021-11-15] MEDS: IPRATROPIUM BROMIDE (0.02%) 0.5MG/2.5ML NEB HHN SCH ×4 (01:58→20:34)
[2021-11-15] MEDS: GUAIFENESIN 200MG/10ML SUGAR FREE UDC PO SCH ×4 (04:15→22:15)
[2021-11-15] MEDS: METOPROLOL TARTRATE 50MG TABLET PO SCH ×2 (08:38→21:22)
[2021-11-15] MEDS: PANTOPRAZOLE SODIUM 40 MG/VIAL IV SCH (08:38)
[2021-11-15] MEDS: AMLODIPINE 10MG TABLET PO SCH (08:39)
[2021-11-15] MEDS: ATORVASTATIN CALCIUM 40MG TABLET PO SCH (21:21)
[2021-11-16] VITALS (10 sets, daily range): BP systolic 95–131; BP diastolic 45–75
[2021-11-16] MEDS: POLYVINYL ALCOHOL OPHTH DROPS 15ML BOTHEYE SCH ×3 (00:02→11:52)
[2021-11-16] MEDS: IPRATROPIUM BROMIDE (0.02%) 0.5MG/2.5ML NEB HHN SCH ×2 (00:49→07:51)
[2021-11-16] MEDS: GUAIFENESIN 200MG/10ML SUGAR FREE UDC PO SCH ×4 (04:15→16:15)
[2021-11-16 06:38] LABS: HEMATOCRIT. 21.5 % (36.0-48.0); HEMOGLOBIN. 7.3 g/dL (12.0-16.0); MEAN CORPUSCULAR HEMOGLOBIN 27.8 pg (28.0-32.0); MEAN CORPUSCULAR VOLUME 82.3 fL (81.0-99.0); PLATELET 282 x1000/uL (130-400); RED BLOOD CELL COUNT 2.61 mill/uL (4.2-5.4); RED CELL DISTRIBUTION WIDTH 16.7 % (11.6-14.6)
[2021-11-16] MEDS: PANTOPRAZOLE SODIUM 40 MG/VIAL IV SCH (08:40)
[2021-11-16] MEDS: AMLODIPINE 10MG TABLET PO SCH (08:41)
[2021-11-16] MEDS: METOPROLOL TARTRATE 50MG TABLET PO SCH (08:41)
[2021-11-16 18:12] LABS: PLATELET ESTIMATE NORMAL
== END 2021-11-16 16:45 | disposition home health service (06) | DRG 870 ==
LOC: ER 04:22 → MICUSO 05:46 → CVICU 10-31 08:30 → 3WST 11-08 19:30
PROVIDERS: ADMIT Internal Medicine; ATTEND Internal Medicine
PROC: 5A1955Z Respiratory Ventilation, Greater than 96 Consecutive Hours (ICD-10-PCS; principal; 2021-10-30)
PROC: 06HY33Z Insertion of Infusion Device into Lower Vein, Percutaneous Approach (ICD-10-PCS; 2021-10-30)
PROC: B54BZZA Ultrasonography of Right Lower Extremity Veins, Guidance (ICD-10-PCS; 2021-10-30)
PROC: 02HV33Z Insertion of Infusion Device into Superior Vena Cava, Percutaneous Approach (ICD-10-PCS; 2021-10-30)
PROC: B548ZZA Ultrasonography of Superior Vena Cava, Guidance (ICD-10-PCS; 2021-10-30)
PROC: 30233N1 Transfusion of Nonautologous Red Blood Cells into Peripheral Vein, Percutaneous Approach (ICD-10-PCS; 2021-10-30)
PROC: 5A1D80Z Performance of Urinary Filtration, Prolonged Intermittent, 6-18 hours Per Day (ICD-10-PCS; 2021-10-30)
PROC: 0BH17EZ Insertion of Endotracheal Airway into Trachea, Via Natural or Artificial Opening (ICD-10-PCS; 2021-10-30)
PROC: 5A1D70Z Performance of Urinary Filtration, Intermittent, Less than 6 Hours Per Day (ICD-10-PCS; 2021-11-01)
PROC: 5A1D70Z Performance of Urinary Filtration, Intermittent, Less than 6 Hours Per Day (ICD-10-PCS; 2021-11-03)
PROC: 5A1D70Z Performance of Urinary Filtration, Intermittent, Less than 6 Hours Per Day (ICD-10-PCS; 2021-11-06)
PROC: 5A1D70Z Performance of Urinary Filtration, Intermittent, Less than 6 Hours Per Day (ICD-10-PCS; 2021-11-08)
PROC: 5A1D70Z Performance of Urinary Filtration, Intermittent, Less than 6 Hours Per Day (ICD-10-PCS; 2021-11-10)
PROC: 4A10X4Z Monitoring of Central Nervous Electrical Activity, External Approach (ICD-10-PCS; 2021-11-11)
PROC: 0JH63XZ Insertion of Tunneled Vascular Access Device into Chest Subcutaneous Tissue and Fascia, Percutaneous Approach (ICD-10-PCS; 2021-11-11)
PROC: 02HV33Z Insertion of Infusion Device into Superior Vena Cava, Percutaneous Approach (ICD-10-PCS; 2021-11-11)
PROC: B518ZZA Fluoroscopy of Superior Vena Cava, Guidance (ICD-10-PCS; 2021-11-11)
PROC: B548ZZA Ultrasonography of Superior Vena Cava, Guidance (ICD-10-PCS; 2021-11-11)
PROC: 5A1D70Z Performance of Urinary Filtration, Intermittent, Less than 6 Hours Per Day (ICD-10-PCS; 2021-11-12)
PROC: 5A1D70Z Performance of Urinary Filtration, Intermittent, Less than 6 Hours Per Day (ICD-10-PCS; 2021-11-14)
PROC: 5A1D70Z Performance of Urinary Filtration, Intermittent, Less than 6 Hours Per Day (ICD-10-PCS; 2021-11-16)
DX: A41.9 Sepsis, unspecified organism (principal); E43 Unspecified severe protein-calorie malnutrition; G93.41 Metabolic encephalopathy; J96.01 Acute respiratory failure with hypoxia; K85.90 Acute pancreatitis without necrosis or infection, unspecified; N18.6 End stage renal disease; R65.21 Severe sepsis with septic shock; R57.8 Other shock; I63.9 Cerebral infarction, unspecified; N17.0 Acute kidney failure with tubular necrosis; E87.2 Acidosis; A36.9 Diphtheria, unspecified; N13.6 Pyonephrosis; Z68.1 Body mass index [BMI] 19.9 or less, adult; I13.2 Hypertensive heart and chronic kidney disease with heart failure and with stage 5 chronic kidney disease, or end stage renal disease; Z20.822 Contact with and (suspected) exposure to COVID-19; D50.0 Iron deficiency anemia secondary to blood loss (chronic); E83.39 Other disorders of phosphorus metabolism; E83.52 Hypercalcemia; E87.5 Hyperkalemia; R19.7 Diarrhea, unspecified; L89.156 Pressure-induced deep tissue damage of sacral region; F17.200 Nicotine dependence, unspecified, uncomplicated; F19.90 Other psychoactive substance use, unspecified, uncomplicated; I50.9 Heart failure, unspecified; J44.9 Chronic obstructive pulmonary disease, unspecified; Z82.49 Family history of ischemic heart disease and other diseases of the circulatory system; Z99.2 Dependence on renal dialysis
CPT/HCPCS: 36415; 36556; 36558; 36589; 36600; 70551; 71045; 74176; 76770; 76830; 76856; 76937; 77001; 80048; 80053; 80202; 80305; 80320; 81003; 82040; 82150; 82375; 82570; 82805; 82962; 83036; 83605; 83721; 83735; 84100; 84134; 84145; 84155; 84156; 84165; 84300; 84478; 84484; 85014; 85018; 85025; 85049; 85384; 86038; 86705; 86709; 86803; 86850; 86900; 86920; 87070; 87340; 87426; 87635; 92610; 93005; 93306; 93880; 94002; 94003; 94640; 94660; 95816; 97110; 97162; 97166; 97530; 97535; 99152; 99153; 99291; A6261; C1750; C1752; C1769; C9113; J0153; J0690; J0885; J1644; J1650; J1815; J2060; J2150; J2250; J2270; J2370; J2543; J3010; J3370; J3490; J7030; J7040; J7060; J7608; P9016; A4315; G0480; G0500

== ENCOUNTER 2022-07-17 14:32 | Inpatient (IN) | payer BC ==
[~2022-07-17] VITALS: Ht 152.4 cm; Wt 39.0 kg
[2022-07-17 16:05] LABS: BASOPHILS % 0.2 % (0.0-2.0); EOSINOPHILS % 0.5 % (0.0-5.0); HEMATOCRIT. 30.9 % (36.0-48.0); HEMOGLOBIN. 8.7 g/dL (12.0-16.0); LYMPHOCYTES % 7.1 % (20.0-50.0); MEAN CORPUSCULAR HEMOGLOBIN 26.4 pg (28.0-32.0); MEAN PLATELET VOLUME 8.5 fl (7.4-10.4); MONOCYTES % 9.8 % (2.0-8.0); NEUTROPHILS % 82.4 % (40.0-76.0); PLATELET 289 x1000/uL (130-400); RED BLOOD CELL COUNT 3.29 mill/uL (4.2-5.4); RED CELL DISTRIBUTION WIDTH 21.4 % (11.6-14.6)
[2022-07-17 16:13] LABS: CHLORIDE 98 mEq/L (98-107)
[2022-07-17] MEDS ORDERED: VANCOMYCIN 1G PREMIX 200 ML IV NR (16:30)
[2022-07-17] MEDS ORDERED: PIPERACILLIN/TAZOBACTAM 3.375GM/50ML PREMIX IV ONE (16:30)
[2022-07-17] MEDS ORDERED: PIPERACILLIN/TAZ 3.375G PREMIX 50 ML IV NR (16:30)
[2022-07-17] MEDS ORDERED: FUROSEMIDE 100MG/10ML VIAL IVP SCH (17:00)
[2022-07-17] MEDS ORDERED: GUAIFENESIN-DM 200MG-20MG/10ML UDC PO PRN (17:00)
[2022-07-17] MEDS ORDERED: IPRATROPIUM/ALBUTEROL 0.5-3(2.5)MG/3ML NEB HHN PRN (17:00)
[2022-07-17 17:08] LABS: BG CARBOXYHEMOGLOBIN 1.8 % (0.5-1.5); BG DEOXYHEMOGLOBIN 3.1 % (0.0-5.0); BG FRACTION INSPIRED OXYGEN 44; BG HCO3 ACT 29.7 mmol/L (22.0-26.0); BG METHEMOGLOBIN 0.3 % (0.0-1.5); BG OXYGEN SATURATION 96.8 % (92.0-98.5); BG OXYHEMOGLOBIN 94.8 % (94.0-97.0); BG PCO2 38.9 mmHg (35.0-45.0); BG PO2 87.2 mmHg (75.0-100.0); BG SAMPLE SITE RIGHT RADIAL; BG TOTAL HEMOGLOBIN 8.8 g/dL (12.0-18.0); BG VENT MODE NASAL CANNULA
[2022-07-17 18:58] LABS: INR 1.2; PROTHROMBIN TIME 12.3 sec (9.6-11.0)
[2022-07-17] MEDS: IPRATROPIUM BROMIDE (0.02%) 0.5MG/2.5ML NEB HHN SCH (20:38)
[2022-07-17 21:15] VITALS: BP 122/84
[2022-07-17] MEDS ORDERED: ONDANSETRON HCL 4MG/2ML INJ IV PRN (21:45)
[2022-07-17] MEDS ORDERED: ACETAMINOPHEN 325MG TABLET PO PRN (21:45)
[2022-07-17] MEDS ORDERED: ZOLPIDEM TARTRATE 5MG TABLET PO PRN (22:45)
[2022-07-17] MEDS ORDERED: HYDROCODONE/ACETAMINOPHEN 5/325MG TABLET PO PRN (22:45)
[2022-07-17] MEDS ORDERED: OXYC-485 PO (23:11)
[2022-07-17] MEDS ORDERED: NAPR-681 PO (23:11)
[2022-07-18] VITALS: BP 103/70
[2022-07-18 04:00] VITALS: BP 117/72
[2022-07-18 08:00] VITALS: BP 117/78
[2022-07-18] MEDS: PANTOPRAZOLE 40MG DR TABLET PO SCH (08:10)
[2022-07-18] MEDS: FOLIC ACID/VITAMIN B COMP W-C TABLET PO SCH (08:11)
[2022-07-18] MEDS: IPRATROPIUM BROMIDE (0.02%) 0.5MG/2.5ML NEB HHN SCH ×3 (08:15→21:34)
[2022-07-18 12:00] VITALS: BP 108/71
[2022-07-18] MEDS: PIPERACILLIN/TAZOBACTAM 3.375 G in DEXTROSE 5% WATER 50 ML IV SCH ×2 (12:13→21:13)
[2022-07-18 16:00] VITALS: BP 121/83
[2022-07-18 16:16] LABS: HEMATOCRIT. 25.2 % (36.0-48.0); HEMOGLOBIN. 7.6 g/dL (12.0-16.0); MEAN CORPUSCULAR HEMOGLOBIN 26.3 pg (28.0-32.0); MEAN CORPUSCULAR VOLUME 87.1 fL (81.0-99.0); MEAN PLATELET VOLUME 8.4 fl (7.4-10.4); PLATELET 423 x1000/uL (130-400); RED BLOOD CELL COUNT 2.89 mill/uL (4.2-5.4); RED CELL DISTRIBUTION WIDTH 20.9 % (11.6-14.6)
[2022-07-18 17:01] LABS: HEPATITIS B SURFACE ANTIGEN NEGATIVE
[2022-07-18 17:12] LABS: PLATELET ESTIMATE INCREASED
[2022-07-18 20:00] VITALS: BP 94/63
[2022-07-19] VITALS: BP 119/74
[2022-07-19] MEDS: IPRATROPIUM BROMIDE (0.02%) 0.5MG/2.5ML NEB HHN SCH ×4 (02:15→21:28)
[2022-07-19 04:00] VITALS: BP 104/71
[2022-07-19 08:00] VITALS: BP 109/66
[2022-07-19] MEDS: PIPERACILLIN/TAZOBACTAM 3.375 G in DEXTROSE 5% WATER 50 ML IV SCH ×2 (08:51→21:37)
[2022-07-19] MEDS: FOLIC ACID/VITAMIN B COMP W-C TABLET PO SCH (08:51)
[2022-07-19] MEDS: PANTOPRAZOLE 40MG DR TABLET PO SCH (09:00)
[2022-07-19 12:00] VITALS: BP 140/87
[2022-07-19 16:00] VITALS: BP 121/80
[2022-07-19 20:00] VITALS: BP 140/93
[2022-07-20] VITALS (7 sets, daily range): BP systolic 108–124; BP diastolic 73–82
[2022-07-20] MEDS: IPRATROPIUM BROMIDE (0.02%) 0.5MG/2.5ML NEB HHN SCH ×3 (01:48→14:43)
[2022-07-20] MEDS: PANTOPRAZOLE 40MG DR TABLET PO SCH ×2 (09:00→10:34)
[2022-07-20] MEDS: PIPERACILLIN/TAZOBACTAM 3.375 G in DEXTROSE 5% WATER 50 ML IV SCH (10:34)
[2022-07-20] MEDS: FOLIC ACID/VITAMIN B COMP W-C TABLET PO SCH ×2 (10:34→10:39)
[2022-07-20] MEDS ORDERED: LEVO250T43 MT (11:26)
[2022-07-20] MEDS ORDERED: NALOXONE HCL 0.4MG/ML VIAL IV PRN (16:00)
== END 2022-07-20 20:53 | disposition home or self-care (01) | DRG 871 ==
LOC: ER 14:32 → MICUSO 16:49 → EDBEDREQ 17:05 → 7EST 22:35
PROVIDERS: ADMIT Internal Medicine; ATTEND Internal Medicine
PROC: 0W9B3ZZ Drainage of Left Pleural Cavity, Percutaneous Approach (ICD-10-PCS; principal; 2022-07-18)
PROC: 5A1D70Z Performance of Urinary Filtration, Intermittent, Less than 6 Hours Per Day (ICD-10-PCS; 2022-07-18)
PROC: 5A1D70Z Performance of Urinary Filtration, Intermittent, Less than 6 Hours Per Day (ICD-10-PCS; 2022-07-20)
DX: A41.9 Sepsis, unspecified organism (principal); E43 Unspecified severe protein-calorie malnutrition; J96.21 Acute and chronic respiratory failure with hypoxia; N18.6 End stage renal disease; I12.0 Hypertensive chronic kidney disease with stage 5 chronic kidney disease or end stage renal disease; E87.1 Hypo-osmolality and hyponatremia; J90 Pleural effusion, not elsewhere classified; Z68.1 Body mass index [BMI] 19.9 or less, adult; D64.9 Anemia, unspecified; C53.9 Malignant neoplasm of cervix uteri, unspecified; Z20.822 Contact with and (suspected) exposure to COVID-19; J44.9 Chronic obstructive pulmonary disease, unspecified; Z90.710 Acquired absence of both cervix and uterus; Z99.2 Dependence on renal dialysis; Z99.81 Dependence on supplemental oxygen; Z86.73 Personal history of transient ischemic attack (TIA), and cerebral infarction without residual deficits
CPT/HCPCS: 32555; 36415; 36600; 71045; 71250; 80048; 80053; 82040; 82375; 82805; 83605; 83615; 83880; 84145; 85025; 86705; 86709; 86803; 87340; 87426; 93005; 93970; 94640; 99291; J1940; J2543; J3370; J7060

== ENCOUNTER 2022-08-27 08:55 | Emergency (ER) | payer BC ==
[~2022-08-27] VITALS: Ht 157.5 cm; Wt 50.0 kg
[~2022-08-27 08:55] MED LIST: LEVO250T74 MT; NAPR-681 PO; OXYC-485 PO
[2022-08-27] MEDS ORDERED: ONDANSETRON HCL 4MG/2ML INJ IV STA (09:02)
[2022-08-27] MEDS ORDERED: SODIUM CHLORIDE 0.9% 1,000 ML IV ONE (09:15)
[2022-08-27 09:29] LABS: BG BASE EXCESS -12.8 mmol/L (-2.0-2.0); BG CARBOXYHEMOGLOBIN 0.4 % (0.5-1.5); BG DEOXYHEMOGLOBIN 1.8 % (0.0-5.0); BG HCO3 ACT 13.6 mmol/L (22.0-26.0); BG METHEMOGLOBIN 0.3 % (0.0-1.5); BG OXYGEN SATURATION 98.2 % (92.0-98.5); BG OXYHEMOGLOBIN 97.5 % (94.0-97.0); BG PCO2 33.2 mmHg (35.0-45.0); BG PH 7.231 (7.350-7.450); BG PO2 137.4 mmHg (75.0-100.0); BG SAMPLE SITE RIGHT RADIAL; BG TOTAL HEMOGLOBIN 11.1 g/dL (12.0-18.0); BG VENT MODE MASK - NRB
[2022-08-27] MEDS ORDERED: LIDOCAINE HCL 1% 10 MG/ML 10ML VIAL ONE (09:46)
[2022-08-27] MEDS ORDERED: DEXTROSE 50% WATER 50ML SYRINGE IV ONE (09:58)
[2022-08-27 11:00] VITALS: BP 124/102
[2022-08-27 11:45] LABS: HEMATOCRIT. 33.4 % (36.0-48.0); MEAN CORPUSCULAR HEMOGLOBIN 25.1 pg (28.0-32.0); MEAN CORPUSCULAR VOLUME 120.3 fL (81.0-99.0); MEAN PLATELET VOLUME 10.1 fl (7.4-10.4); PLATELET 108 x1000/uL (130-400); RED BLOOD CELL COUNT 2.78 mill/uL (4.2-5.4); RED CELL DISTRIBUTION WIDTH 23.2 % (11.6-14.6)
[2022-08-27 11:51] LABS: INR 2.1; PROTHROMBIN TIME 21.4 sec (9.6-11.0)
[2022-08-27 12:36] LABS: PLATELET ESTIMATE SLIGHTLY DECREASED
[2022-08-27 13:13] LABS: CHLORIDE 96 mEq/L (98-107)
== END 2022-08-27 13:17 ==
LOC: ER 09:04
DX: I46.9 Cardiac arrest, cause unspecified (principal); K92.2 Gastrointestinal hemorrhage, unspecified; J96.00 Acute respiratory failure, unspecified whether with hypoxia or hypercapnia; N18.6 End stage renal disease; Z99.2 Dependence on renal dialysis; Z86.73 Personal history of transient ischemic attack (TIA), and cerebral infarction without residual deficits; Z90.710 Acquired absence of both cervix and uterus; Z85.9 Personal history of malignant neoplasm, unspecified
CPT/HCPCS: 31500; 36415; 36600; 80053; 82375; 82805; 82962; 85025; 85610; 86850; 86900; 86901; 86920; 93005; 96360; 96361; 99291; J3490; J7030; Z7610; 94002; P9016